=== PATIENT | female | born 1960 | race African-American/Black ===

== ENCOUNTER 2017-02-06 05:53 | Day surgery (SDC) | payer OTHER ==
[2017-02-06] VITALS (8 sets, daily range): BP systolic 107–123; BP diastolic 61–79
[~2017-02-06] VITALS: Ht 162.6 cm; Wt 61.7 kg
[~2017-02-06 05:53] MED LIST: Akten 3.5% 1ml Btl RIGHT EYE SCH; Ciprofloxacin Opth Soln RIGHT EYE SCH; MITOMYCIN RIGHT EYE ONE; Tobradex Opth Susp 2.5ml RIGHT EYE SCH; Tobramycin Op Soln 0.3% RIGHT EYE SCH
[2017-02-06] MEDS ORDERED: Ciprofloxacin Opth Soln ONE (06:14)
[2017-02-06] MEDS ORDERED: Tobradex Opth Susp 2.5ml ONE (06:14)
[2017-02-06] MEDS ORDERED: Akten 3.5% 1ml Btl ONE (06:14)
[2017-02-06] MEDS: Tobradex Opth Susp 2.5ml RIGHT EYE SCH ×3 (06:30→06:41)
[2017-02-06] MEDS: Ciprofloxacin Opth Soln RIGHT EYE SCH ×3 (06:30→06:41)
[2017-02-06] MEDS: Akten 3.5% 1ml Btl RIGHT EYE SCH ×3 (06:30→06:41)
[2017-02-06] MEDS ORDERED: PROGESTERONE100 MG PO (06:41)
[2017-02-06] MEDS ORDERED: MINIVELLE1 EAC1 TD (06:41)
[2017-02-06] MEDS ORDERED: LATISSE5 ML TP (06:41)
[2017-02-06] MEDS ORDERED: Lidocaine 2% 20mg/ml/Epi 0.005mg/ml 20ml vial ONE (07:02)
[2017-02-06] MEDS ORDERED: Povidone-Iodine 5% opth solution ONE (07:03)
[2017-02-06] MEDS ORDERED: BSS 15ml BTL ONE (07:03)
[2017-02-06] MEDS ORDERED: Midazolam 2mg/2ml Inj ONE (07:30)
[2017-02-06] MEDS ORDERED: Propofol 200mg/20ml IV ONE (07:30)
[2017-02-06] MEDS ORDERED: LR 1000ml ONE (07:30)
[2017-02-06] MEDS ORDERED: Sterile Water Irrig 1000ml IRRIG ONE (07:30)
[2017-02-06] MEDS ORDERED: NS Irrig 1000ml ONE (07:30)
[2017-02-06] MEDS ORDERED: fentaNYL 100 mcg/2 mL IV ONE (07:30)
[2017-02-06] MEDS ORDERED: Bupivacaine 0.75% 30ml vial INJ ONE (07:41)
[2017-02-06] MEDS ORDERED: Lidocaine 2% MPF 5ml Vial INJ ONE (07:41)
--- NOTE | 2017-02-06 07:47 | Pre-Procedure Note/Attestation ---
Pre-Procedure Note/Attestation Complete Prior to Procedure Planned Procedure: right Procedure Narrative: pterygium excision with mitomycin C and conjunctival graft right eye Indications for Procedure Pre-Operative Diagnosis: pterygium right eye Attestation I attest that I discussed the nature of the procedure; its benefits; risks and complications; and alternatives (and the risks and benefits of such alternatives ), prior to the procedure, with the patient (or the patient's legal outside sales account representative). I attest that, if there was a reasonable possibility of needing a blood transfusion, the patient (or the patient's legal outside sales account representative) was given the [facility] standardized written summary, pursuant to the [employer] Blood Safety Act ([place] Health and Safety Code # 1645, as amended). I attest that I re-evaluated the patient just prior to the surgery and that there has been no change in the patient's H&P, except as documented below: BETO PATRICK Feb 06, 2017 07:47
--- NOTE | 2017-02-06 08:43 | Anethesia Preoperative Eval ---
Anesthesia Pre-op PMH/ROS General Date of Evaluation: Feb 06, 2017 Time of Evaluation: 07:20 Anesthesiologist: April ASA Score: ASA 1 Mallampati Score Class I : Soft palate, uvula, fauces, pillars visible Class II: Soft palate, uvula, fauces visible Class III: Soft palate, base of uvula visible Class IV: Only hard plate visible Mallampati Classification: Class II Surgeon: Eber Surgical Procedure: Pterygium excision with conjuctival graft Right eye Anesthesia History: none Family History: no anesthesia problems Allergies: Coded Allergies: ERYTHROMYCIN BASE (Verified Allergy, Severe, hives, 02/06/17) Medications: see eMAR Past Medical History Cardiovascular: Denies: HTN, CAD, AR, valve dz, arrhythmia, other Pulmonary: Reports: asthma - mild , seasonal Gastrointestinal/Genitourinary: Denies: GERD, CRI, ESRD, other Neurologic/Psychiatric: Denies: dementia, CVA, depression/anxiety, TIA, other Endocrine: Denies: DM, hypothyroidism, steroids, other HEENT: Denies: cataract (L), cataract (R), glaucoma, [place] (L), [place] (R), other Hematology/Immune: Denies: anemia, DVT, bleeding disorder, other Musculoskeletal/Integumentary: Denies: OA, RA, DJD, DDD, edema, other Anesthesia Pre-op Phys. Exam Physician Exam Last Vital Signs Date Time Temp Pulse Resp B/P (MAP) Pulse Ox O2 Delivery O2 Flow Rate FiO2 02/06/17 06:55 98.1 65 19 116/79 100 Room Air Constitutional: NAD Neurologic: CN 2-12 intact Cardiovascular: RRR Respiratory: CTA Gastrointestinal: S/NT/ND Airway Exam Mallampati Score: Class II ROM: full Teeth: intact Dentures: no upper, no lower Anesthesia Pre-op A/P Labs reviewed Studies Pre-op Studies: EKG - NSR Risk Assessment & Plan Plan: MAC Status Change Before Surgery: No Pre-Antibiotics Given Within 1 Hr of Incision: No - none per surgeon Neena Chen CRNA Feb 06, 2017 08:43
[2017-02-06] MEDS ORDERED: Dexamethasone 4mg/ml vial ONE (08:47)
[2017-02-06] MEDS ORDERED: Maxitrol Opth Oint 3.5gm ONE (08:51)
--- NOTE | 2017-02-06 08:59 | Immediate Post-Op Evaluation ---
Immediate Post-Op Evalulation Immediate Post-Op Evalulation Date of Evaluation: Feb 06, 2017 Time of Evaluation: 08:56 IV Fluids: 600 ml LR Blood Pressure Systolic: 108 Blood Pressure Diastolic: 68 Pulse Rate: 60 Respiratory Rate: 14 O2 Sat by Pulse Oximetry: 100 Temperature (Fahrenheit): 97.5 Pain Score (1-10): 0 Nausea: No Vomiting: No Patient Status: awake Hydration Status: adequate Given Within 1 Hr of Incision: Neena Castillo CRNA Feb 06, 2017 08:59
--- NOTE | 2017-02-06 09:00 | Brief Operative Note ---
Immediate Post Operative Note Operative Note Pre-op Diagnosis: pterygium right eye Procedure: pterygium excision with mitomycin C and conjunctival graft right eye Post-op Diagnosis: same as pre-op Surgeon: beto beltran Galvanometer Assembler: none Anesthesiologist: vita craft Anesthesia: MAC Specimen: yes Complications: none Condition: stable Fluids: none Estimated Blood Loss: none Drains: none Implant(s) used?: No BETO BELTRAN Feb 06, 2017 09:00
--- NOTE | 2017-02-06 09:29 | 48 Hour Post Anesthesia Eval ---
Post Anesthesia Evaluation Date of Evaluation: Feb 06, 2017 Time of Evaluation: 09:28 Blood Pressure Systolic: 105 0: 68 Pulse Rate: 62 Respiratory Rate: 15 Temperature (Fahrenheit): 97.5 O2 Sat by Pulse Oximetry: 100 Airway: patent Nausea: No Vomiting: No Pain Intensity: 0 Hydration Status: adequate Mental Status/LOC: patient returned to baseline Follow-up care needed: patient intructions given Neena Chen CRNA Feb 06, 2017 09:29
--- NOTE | 2017-02-06 21:01 | Operative Note - Dictated ---
DATE OF OPERATION: 02/06/2017 PREOPERATIVE DIAGNOSIS: Pterygium, right eye. POSTOPERATIVE DIAGNOSIS: Pterygium, right eye. Procedure: Excision of pterygium, right eye with mitomycin-C and conjunctival graft. SURGEON: Erik Velázquez M.D. ([facility] [place]) GUIDANCE SECRETARY: None. ANESTHESIA: MAC/retrobulbar. ANESTHESIOLOGIST: Berry Chen CRNA. INDICATION FOR PROCEDURE: Redness and irritation, right eye. DESCRIPTION OF FINDINGS: Large raised pterygium, right eye. Description Of Procedure: The patient was brought to the operating room and prepped and draped in usual manner. She received a retrobulbar block consisting 2.5 mL of 50:50 mixture of 0.75% Marcaine and 2% lidocaine. Intermittent massage applied to closed lid and adequate lid and eye akinesia and anesthesia was obtained. The eye was then prepped and draped in usual manner. A lid speculum was placed. An operating Zeiss microscope was positioned. A 7-0 Vicryl bridlle suture was placed through the corneal limbus at the 12 o'clock position. Deborah scissors were used to bluntly dissect the head of pterygium from the cornea. It was then completely excised. Hemostasis was obtained with wet-field cautery. Mitomycin-C in the concentration of 0.3 mg/mL was placed on cut Weck sponges. Three sponges were placed underneath the cut edge of the conjunctiva and left for a total of three minutes. All three were then removed and then the area was irrigated with two 20 mL bottles of BSS. A pneumatic corneal kyung was then used to emirati the cornea. The conjunctival defect was measured with calipers. The bridle suture was then used to rotate the globe inferiorly. A marking pen was used to nakul the graft. A subconjunctival injection of 2% Xylocaine was placed. Deborah scissors were used to harvest the graft. The graft was then placed on the site of the pterygium incision keeping the limbal orientation. The globe was rotated temporally with the bridle suture. The graft was secured with two interrupted 10-0 Vicryl sutures at the nasal limbus. The graft was then flipped on the cornea. Tisseel tissue glue was prepared. The thicker component 1 was placed on the site of excision. The thinner component 2 was placed on top of that. The graft was then returned into position and excess glue squeegied with a muscle hook. Three additional 10-0 Vicryl sutures were placed to secure the graft. The graft was inspected and found to be in good position. A subconjunctival injection of dexamethasone and gentamicin was given. The bridle suture was removed. The lid speculum was removed. The eye was patched with TobraDex ointment. The patient tolerated the procedure well and left the operating room in good condition. Erik Velázquez M.D. ([facility]) DR: SYLVIA JOB#: [id number] CC: MONICA
== END 2017-02-06 10:55 | disposition home or self-care (01) ==
LOC: SUR 05:53
DX: H11.001 Unspecified pterygium of right eye (principal); Z88.8 Allergy status to other drugs, medicaments and biological substances
CPT/HCPCS: 65426; J1100; J2250; J2704; J3010; J3490; J7120; J7315; 94003; 94150